=== PATIENT | male | born 1970 | race Caucasian/White ===

== ENCOUNTER 2021-09-20 10:32 | Emergency (ER) | payer OTHER ==
[2021-09-20] MEDS ORDERED: Sodium Chloride 0.9% 10 ML Syringe FLUSH PRN (11:18)
[2021-09-20] MEDS ORDERED: Famotidine 20 MG/2 ML SDV IVPUSH PRN (11:19)
[2021-09-20] MEDS ORDERED: EPINEPHrine 1 MG/ML SDV IM PRN (11:19)
[2021-09-20] MEDS ORDERED: diphenhydrAMINE 50 MG/ML SDV IVPUSH PRN (11:19)
[2021-09-20] MEDS ORDERED: methylPREDNISolone Sodium Succinate 125 MG/2 ML SDV IVPUSH PRN (11:19)
--- NOTE | 2021-09-20 11:26 | EDM.PDOC ---
ED HPI GENERAL MEDICAL PROBLEM - General Chief Complaint: Respiratory Problem Stated Complaint: COVID + Time Seen by Provider: 09/20/21 11:22 Source of Information: Reports: Patient, RN Notes Reviewed History Limitations: Reports: No Limitations - History of Present Illness INITIAL COMMENTS - FREE TEXT/NARRATIVE: Patient is a 51-year-old male who presents to the ER for evaluation of his COVID-19 symptoms. Patient started being symptomatic for COVID-19 on , September 18, 2021, states that his has been sick for about 5 or 6 days. Patient states he has prostate cancer and is on oral chemotherapy for this. Not complaining of any fevers, cough or shortness of breath but has a lot of myalgias and headaches. Also not complaining of any nausea/vomiting/diarrhea. Patient was told to come to the ER for possible Regeneron therapy due to his cancer diagnosis. States that his got this, and that she was feeling a bit better. Patient would qualify for this due to his cancer status. - Related Data Allergies Allergy/AdvReac Type Severity Reaction Status Date / Time No Known Allergies Allergy Verified 09/20/21 11:26 Home Meds: Home Meds Apalutamide [Erleada] 60 mg PO TID 09/20/21 [History] Simvastatin [Zocor] 20 mg PO BEDTIME 09/20/21 [History] ED ROS GENERAL - Review of Systems Review Of Systems: Comprehensive ROS is negative, except as noted in HPI. ED EXAM, GENERAL - Physical Exam Exam: See Below Exam Limited By: No Limitations General Appearance: Alert, WD/WN, No Apparent Distress Respiratory/Chest: No Respiratory Distress, Lungs Clear, Normal Breath Sounds, No Accessory Muscle Use, Chest Non-Tender Cardiovascular: Normal Peripheral Pulses, Regular Rate, Rhythm, No Edema Peripheral Pulses: 2+: Radial (L), Radial (R) GI/Abdominal: Normal Bowel Sounds, Soft, Non-Tender, No Organomegaly, No Distention, No Abnormal Bruit, No Mass Extremities: Normal Inspection, Normal Capillary Refill Neurological: Alert, Oriented, Normal Cognition, No Motor/Sensory Deficits Psychiatric: Normal Affect, Normal Mood Skin Exam: Warm, Dry, Intact, Normal Color, No Rash Course - Vital Signs Last Recorded V/S: Last Vital Signs Temp 98.0 F 09/20/21 11:21 Pulse 58 L 09/20/21 11:21 Resp 18 09/20/21 11:21 BP 122/64 09/20/21 11:21 Pulse Ox 99 09/20/21 11:21 - Orders/Labs/Meds Orders: Active Orders 24 hr Category Date Time Status Peripheral IV Care [RC] . DIRECTED Care 09/20/21 11:19 Active Vital Signs [RC] Q15M Care 09/20/21 11:19 Active Chest 1V Frontal [CR] Stat Exams 09/20/21 11:18 Taken C-REACTIVE PROTEIN [CHEM] Stat Lab 09/20/21 12:00 Received COMPREHENSIVE METABOLIC PN,CMP [CHEM] Stat Lab 09/20/21 12:00 Received EPINEPHrine [Adrenalin] Med 09/20/21 11:19 Active 0.3 mg IM ASDIRECTED PRN Famotidine [Pepcid] Med 09/20/21 11:19 Active 20 mg IVPUSH ASDIRECTED PRN Sodium Chloride 0.9% [Saline Flush] Med 09/20/21 11:18 Active 10 ml FLUSH ASDIRECTED PRN Sodium Chloride 0.9% [Saline Flush] Med 09/20/21 11:30 Active 30 ml FLUSH ASDIRECTED diphenhydrAMINE [Benadryl] Med 09/20/21 11:19 Active 50 mg IVPUSH ASDIRECTED PRN methylPREDNISolone Sod Succ [Solu-MEDROL] Med 09/20/21 11:19 Active 125 mg IVPUSH ASDIRECTED PRN Peripheral IV Insertion Adult [OM.PC] Routine Oth 09/20/21 11:18 Ordered Medication Orders Diphenhydramine HCl (Diphenhydramine 50 Mg/Ml Sdv) 50 mg IVPUSH ASDIRECTED PRN PRN Reason: hypersensitivity reaction Epinephrine HCl (Epinephrine 1 Mg/Ml Sdv) 0.3 mg IM ASDIRECTED PRN PRN Reason: hypersensitivity reaction Famotidine (Famotidine 20 Mg/2 Ml Sdv) 20 mg IVPUSH ASDIRECTED PRN PRN Reason: hypersensitivity reaction Methylprednisolone Sodium Succinate (Methylprednisolone Sodium Succinate 125 Mg/2 Ml Sdv) 125 mg IVPUSH ASDIRECTED PRN PRN Reason: hypersensitivity reaction Sodium Chloride (Sodium Chloride 0.9% 10 Ml Syringe) 10 ml FLUSH ASDIRECTED PRN PRN Reason: Keep Vein Open Sodium Chloride (Sodium Chloride 0.9% 10 Ml Syringe) 30 ml FLUSH ASDIRECTED ROSCOE Labs: Laboratory Tests 09/20/21 Range/Units 12:00 WBC 4.36 (4.23-9.07) K/mm3 RBC 4.30 L (4.63-6.08) M/mm3 Hgb 13.1 L (13.7-17.5) gm/dl Hct 40.6 (40.1-51.0) % MCV 94.4 H (79.0-92.2) fl MCH 30.5 (25.7-32.2) pg MCHC 32.3 (32.2-35.5) g/dl RDW Std Deviation 45.1 H (35.1-43.9) fL Plt Count 242 (163-337) K/mm3 MPV 9.4 (9.4-12.3) fl Neut % (Auto) 64.0 (34.0-67.9) % Lymph % (Auto) 17.2 L (21.8-53.1) % [place] % (Auto) 17.0 H (5.3-12.2) % Eos % (Auto) 1.4 (0.8-7.0) Baso % (Auto) 0.2 (0.1-1.2) % Neut # (Auto) 2.79 (1.78-5.38) K/mm3 Lymph # (Auto) 0.75 L (1.32-3.57) K/mm3 [place] # (Auto) 0.74 (0.30-0.82) K/mm3 Eos # (Auto) 0.06 (0.04-0.54) K/mm3 Baso # (Auto) 0.01 (0.01-0.08) K/mm3 Meds: Medications Generic Name Dose Route Start Last Admin Trade Name Freq PRN Reason Stop Dose Admin Diphenhydramine HCl 50 mg 09/20/21 11:19 Diphenhydramine 50 Mg/Ml Sdv IVPUSH ASDIRECTED PRN hypersensitivity reaction Epinephrine HCl 0.3 mg 09/20/21 11:19 Epinephrine 1 Mg/Ml Sdv IM ASDIRECTED PRN hypersensitivity reaction Famotidine 20 mg 09/20/21 11:19 Famotidine 20 Mg/2 Ml Sdv IVPUSH ASDIRECTED PRN hypersensitivity reaction Methylprednisolone Sodium Succinate 125 mg 11/13/21 11:19 Methylprednisolone Sodium Succinate 125 Mg/2 Ml Sdv IVPUSH ASDIRECTED PRN hypersensitivity reaction Sodium Chloride 10 ml 09/20/21 11:18 Sodium Chloride 0.9% 10 Ml Syringe FLUSH ASDIRECTED PRN Keep Vein Open Sodium Chloride 30 ml 09/20/21 11:30 Sodium Chloride 0.9% 10 Ml Syringe FLUSH ASDIRECTED ROSCOE Discontinued Medications Generic Name Dose Route Start Last Admin Trade Name Tosin PRN Reason Stop Dose Admin Bamlanivimab 700 mg/ 160 mls @ 310 mls/hr 09/20/21 11:45 09/20/21 11:54 Etesevimab 1,400 mg/ Sodium IV 09/20/21 12:15 310 mls/hr Chloride ONETIME ONE Administration - Re-Assessments/Exams Free Text/Narrative Re-Assessment/Exam: 09/20/21 11:26 Patient presents to the ER for evaluation of his COVID-19 symptoms. I spoke with the patient to provide information about monoclonal antibody treatment. I offered them the "Patient and caregiver EUA monoclonal antibody fact sheet" to read and review. I stated that the drug has been approved by an emergency use authorization (EUA) process and has not been fully FDA reviewed or approved. The patient meets the EUA requirements. I discussed there are other potential treatment options that are currently not FDA approved to treat COVID-19. I did offer an opportunity to ask questions and all questions were answered. The patient voiced understanding and agreed to proceed with the treatment. We will also get some basic labs and a chest x-ray for monitoring of his disease. 09/20/21 12:53 CBC is only lab that has been resulted at this time. Patient has finished with his monoclonal antibodies. I did review the chest x-ray and no obvious infiltrates are appreciated by myself. Official radiology read is still pending. Patient will be discharged at around 1:30 PM, if he remains asymptomatic from his antibody infusion. 09/20/21 13:05 CMP and CRP are back, and essentially unremarkable. Again patient be discharged home at about 1:30 if still asymptomatic. Departure - Departure Time of Disposition: 13:05 Disposition: Home, Self-Care 01 Condition: Good Clinical Impression: COVID-19 - Discharge Information *PRESCRIPTION DRUG MONITORING PROGRAM REVIEWED*: No *COPY OF PRESCRIPTION DRUG MONITORING REPORT IN PATIENT MICHAEL: No Instructions: 10 Things You Can Do to Manage Your COVID-19 Symptoms at Home - [facility] (05/23/2021) Referrals: PCP,Not In Area [Primary Care Provider] - Forms: ED Department Discharge Additional Instructions: You were seen in the ER today for ongoing and/or worsening respiratory symptoms. Your chest x-ray showed no signs of pneumonia at this time. Your oxygen levels were great at 96-97% on room air. You were given IV monoclonal antibody therapy at today's visit, this medication is thought to work by making you a little less sick, and helps to decrease the length of time that you are sick. Please try to increase your oral fluid intake, and eat multiple small meals throughout the day, to keep yourself healthy. You need to keep yourself nourished in order to fight off this disease. You can try a liquid diet like gatorade/powerade as well to get your electrolytes. You may take 500 mg Tylenol every hours 6 hours for pain/fever relief. Do not exceed 4000 mg Tylenol in a 24-hour time span. However, running a fever is your body's natural response to illness, and it allows the body to develop antibodies to disease, we are recommending trying to limit the use of Tylenol as much as possible to allow your body's natural immune response. Recommend you obtain a pulse oximeter and monitor your oxygen levels at home, you should place the monitor on your finger, and sit in a calm, quiet position for a few minutes and then record the number that is on the screen. If this consistently below 90% on room air without movement, this would be cause for concern to come back to the hospital for further management of your COVID-19 disease. Please follow all guidance set forth from [facility], regarding isolation purposes for your disease process. General isolation times are 10 days from when you started being symptomatic. Sepsis Event Note (ED) - Focused Exam Vital Signs: Vital Signs Temp Pulse Resp BP Pulse Ox 09/20/21 11:21 98.0 F 58 L 18 122/64 99 - My Orders Last 24 Hours: My Active Orders 09/20/21 11:18 Chest 1V Frontal [CR] Stat Sodium Chloride 0.9% [Saline Flush] 10 ml FLUSH ASDIRECTED PRN Peripheral IV Insertion Adult [OM.PC] Routine 09/20/21 11:19 Peripheral IV Care [RC] . DIRECTED Vital Signs [RC] Q15M EPINEPHrine [Adrenalin] 0.3 mg IM ASDIRECTED PRN Famotidine [Pepcid] 20 mg IVPUSH ASDIRECTED PRN diphenhydrAMINE [Benadryl] 50 mg IVPUSH ASDIRECTED PRN methylPREDNISolone Sod Succ [Solu-MEDROL] 125 mg IVPUSH ASDIRECTED PRN 09/20/21 11:30 Sodium Chloride 0.9% [Saline Flush] 30 ml FLUSH ASDIRECTED 09/20/21 12:00 C-REACTIVE PROTEIN [CHEM] Stat COMPREHENSIVE METABOLIC PN,CMP [CHEM] Stat - Assessment/Plan Last 24 Hours: My Active Orders 09/20/21 11:18 Chest 1V Frontal [CR] Stat Sodium Chloride 0.9% [Saline Flush] 10 ml FLUSH ASDIRECTED PRN Peripheral IV Insertion Adult [OM.PC] Routine 09/20/21 11:19 Peripheral IV Care [RC] . DIRECTED Vital Signs [RC] Q15M EPINEPHrine [Adrenalin] 0.3 mg IM ASDIRECTED PRN Famotidine [Pepcid] 20 mg IVPUSH ASDIRECTED PRN diphenhydrAMINE [Benadryl] 50 mg IVPUSH ASDIRECTED PRN methylPREDNISolone Sod Succ [Solu-MEDROL] 125 mg IVPUSH ASDIRECTED PRN 09/20/21 11:30 Sodium Chloride 0.9% [Saline Flush] 30 ml FLUSH ASDIRECTED 09/20/21 12:00 C-REACTIVE PROTEIN [CHEM] Stat COMPREHENSIVE METABOLIC PN,CMP [CHEM] Stat
[2021-09-20] MEDS ORDERED: Sodium Chloride 0.9% 10 ML Syringe FLUSH SCH (11:30)
[2021-09-20] MEDS ORDERED: Bamlanivimab 700 MG, ETESEVIMAB 1,400 MG in Sodium Chloride 0.9% 100 ML IV ONE (11:45)
--- NOTE | 2021-09-20 12:53 | CR ---
Chest: Portable view of the chest was obtained. Comparison: No prior chest imaging is available. Heart size and mediastinum are normal. Lungs are clear with no acute parenchymal change. Bony structure shows nothing acute. Impression: 1. Nothing acute is seen on frontal chest x-ray. Diagnostic code #1
== END 2021-09-20 13:20 | disposition home or self-care (01) ==
LOC: JD.ED 10:32
DX: U07.1 COVID-19 (principal)
CPT/HCPCS: 36415; 71045; 80053; 85025; 86140; 99283; M0245; Q0245